=== PATIENT | female | born 1990 | race African-American/Black ===

== ENCOUNTER 2016-11-10 08:18 | Emergency (ER) | payer BC ==
[~2016-11-10] VITALS: Ht 172.7 cm; Wt 113.4 kg
[~2016-11-10 08:18] MED LIST: FOLIC ACID 40400 MC1 PO; PRENATAL MULTI1 EAC2 PO
[2016-11-10 08:20] VITALS: BP 158/114
== END 2016-11-10 08:45 | disposition left against medical advice (07) ==
LOC: ER 08:18
DX: H57.12 Ocular pain, left eye (principal); Z53.21 Procedure and treatment not carried out due to patient leaving prior to being seen by health care provider